=== PATIENT | female | born 1985 | race African-American/Black ===

== ENCOUNTER 2017-06-22 19:39 | Emergency (ER) | payer OTHER ==
[~2017-06-22] VITALS: Ht 170.2 cm; Wt 91.0 kg
[2017-06-22 21:48] LABS: CHLORIDE 110 mEq/L (98-107)
[2017-06-22 21:51] LABS: BASOPHILS % 0.7 % (0.0-2.0); EOSINOPHILS % 1.3 % (0.0-5.0); HEMATOCRIT. 39.6 % (36.0-48.0); HEMOGLOBIN. 13.1 g/dL (12.0-16.0); LYMPHOCYTES % 34.7 % (20.0-50.0); MEAN CORPUSCULAR HEMOGLOBIN 26.9 pg (28.0-32.0); MEAN CORPUSCULAR VOLUME 81.3 fL (81.0-99.0); MEAN PLATELET VOLUME 9.3 fl (7.4-10.4); MONOCYTES % 4.4 % (2.0-8.0); NEUTROPHILS % 58.9 % (40.0-76.0); PLATELET 283 x1000/uL (130-400); RED BLOOD CELL COUNT 4.87 mill/uL (4.2-5.4); RED CELL DISTRIBUTION WIDTH 18.4 % (11.6-14.6)
[2017-06-22 21:52] LABS: HCG SCREEN NEGATIVE
[2017-06-22 21:53] LABS: ETHANOL BLOOD < 10 mg/dL
[2017-06-22 23:54] LABS: CLARITY URINE CLEAR (CLEAR); COLOR URINE YELLOW (YELLOW); KETONES URINE NEGATIVE (NEGATIVE); LEUKOCYTE ESTERASE URINE TRACE (NEGATIVE); NITRITE URINE POSITIVE (NEGATIVE); OCCULT BLOOD URINE 1+ (NEGATIVE); PROTEIN URINE NEGATIVE (NEGATIVE); SPECIFIC GRAVITY URINE 1.005 (1.005-1.030); UROBILINOGEN URINE 0.2 E.U./dL (0.2-1.0)
[2017-06-23 00:06] LABS: *AMPHETAMINES SCREEN URINE NEGATIVE (NEGATIVE); *BARBITURATES SCREEN URINE NEGATIVE (NEGATIVE)
[2017-06-23 00:08] LABS: *BENZODIAZEPINES SCREEN URINE NEGATIVE (NEGATIVE); *COCAINE SCREEN URINE NEGATIVE (NEGATIVE); METHADONE URINE SCREEN NEGATIVE (NEGATIVE); OPIATES URINE SCREEN NEGATIVE (NEGATIVE); PHENCYCLIDINE URINE SCREEN NEGATIVE (NEGATIVE)
[2017-06-23 00:24] LABS: CANNABINOID URINE SCREEN PRESUMTIVE POSITIVE (NEGATIVE)
[2017-06-23] MEDS ORDERED: CEFTRIAXONE 1 G PREMIX 50 ML IV SCH (02:26)
[2017-06-23] MEDS ORDERED: OLANZAPINE 10MG TABLET ODT PO SCH (04:17)
[2017-06-23] MEDS ORDERED: LORAZEPAM 1MG TABLET PO ONE ×2 (08:45→16:00)
[2017-06-23 12:12] LABS: CHLORIDE 112 mEq/L (98-107)
[2017-06-23] MEDS ORDERED: SODIUM CHLORIDE 0.9% 1,000 ML IV ONE (13:55)
[2017-06-23] MEDS ORDERED: NICOTINE 21MG PATCH TD ONE (15:30)
[2017-06-23] MEDS: QUETIAPINE FUMARATE 100MG TABLET PO SCH (20:36)
[2017-06-24] MEDS: QUETIAPINE FUMARATE 100MG TABLET PO SCH (09:15)
[2017-06-24] MEDS ORDERED: ABIL5 PO (11:11)
[2017-06-24] MEDS ORDERED: TOPA25 PO (11:12)
[2017-06-24] MEDS ORDERED: CLON0.5T4 PO (11:12)
[2017-06-24] MEDS ORDERED: SERT25TA74 PO (11:12)
[2017-06-24] MEDS ORDERED: CLONAZEPAM 1MG TABLET PO ONE (13:15)
[2017-06-25 13:38] VITALS: BP 120/68
== END 2017-06-25 13:39 ==
LOC: ER 19:51
DX: T42.6X2A Poisoning by other antiepileptic and sedative-hypnotic drugs, intentional self-harm, initial encounter (principal); N39.0 Urinary tract infection, site not specified; F41.9 Anxiety disorder, unspecified; F25.9 Schizoaffective disorder, unspecified; F32.9 Major depressive disorder, single episode, unspecified; F17.200 Nicotine dependence, unspecified, uncomplicated; Q20.5 Discordant atrioventricular connection; F12.10 Cannabis abuse, uncomplicated; Y92.018 Other place in single-family (private) house as the place of occurrence of the external cause
CPT/HCPCS: 36415; 80053; 80305; 80307; 80329; 81003; 82962; 84703; 85025; 87086; 93005; 96361; 96365; 99285; G0482; J0696; J7030; Z7610

== ENCOUNTER 2017-07-02 12:15 | Emergency (ER) | payer OTHER ==
[~2017-07-02] VITALS: Ht 170.2 cm; Wt 91.0 kg
[~2017-07-02 12:15] MED LIST: ABIL5 PO; CLON0.5T4 PO; SERT25TA74 PO; TOPA25 PO
[2017-07-02] MEDS ORDERED: SODIUM CHLORIDE 0.9% 1,000 ML IV ONE ×2 (13:08→21:00)
[2017-07-02] MEDS ORDERED: ONDANSETRON HCL 4MG/2ML VIAL IV ONE (13:15)
[2017-07-02] MEDS ORDERED: ACTIVATED CHARCOAL 50 G/240 ML TUBE NG ONE (13:15)
[2017-07-02 13:36] LABS: BASOPHILS % 0.5 % (0.0-2.0); EOSINOPHILS % 0.2 % (0.0-5.0); HEMATOCRIT. 39.6 % (36.0-48.0); MEAN CORPUSCULAR HEMOGLOBIN 26.7 pg (28.0-32.0); MEAN CORPUSCULAR VOLUME 81.1 fL (81.0-99.0); MEAN PLATELET VOLUME 9.1 fl (7.4-10.4); MONOCYTES % 3.8 % (2.0-8.0); NEUTROPHILS % 80.5 % (40.0-76.0); PLATELET 327 x1000/uL (130-400); RED BLOOD CELL COUNT 4.88 mill/uL (4.2-5.4); RED CELL DISTRIBUTION WIDTH 18.3 % (11.6-14.6)
[2017-07-02 13:38] LABS: CHLORIDE 104 mEq/L (98-107)
[2017-07-02 13:43] LABS: HCG SCREEN NEGATIVE
[2017-07-02 15:38] LABS: INR 1.1; PROTHROMBIN TIME 11.4 sec (9.4-11.6)
[2017-07-02 15:40] LABS: ETHANOL BLOOD < 10 mg/dL
[2017-07-02] MEDS ORDERED: OLANZAPINE 10MG TABLET ODT PO ONE (21:00)
[2017-07-02 21:46] LABS: CLARITY URINE CLOUDY (CLEAR); COLOR URINE YELLOW (YELLOW); KETONES URINE NEGATIVE (NEGATIVE); LEUKOCYTE ESTERASE URINE TRACE (NEGATIVE); NITRITE URINE NEGATIVE (NEGATIVE); OCCULT BLOOD URINE NEGATIVE (NEGATIVE); PROTEIN URINE NEGATIVE (NEGATIVE); UROBILINOGEN URINE 0.2 E.U./dL (0.2-1.0)
[2017-07-02 22:02] LABS: *AMPHETAMINES SCREEN URINE NEGATIVE (NEGATIVE); *BARBITURATES SCREEN URINE NEGATIVE (NEGATIVE); *COCAINE SCREEN URINE NEGATIVE (NEGATIVE)
[2017-07-02 22:03] LABS: *BENZODIAZEPINES SCREEN URINE PRESUMTIVE POSITIVE (NEGATIVE); CANNABINOID URINE SCREEN PRESUMTIVE POSITIVE (NEGATIVE); METHADONE URINE SCREEN NEGATIVE (NEGATIVE); OPIATES URINE SCREEN NEGATIVE (NEGATIVE); PHENCYCLIDINE URINE SCREEN NEGATIVE (NEGATIVE)
[2017-07-03] MEDS ORDERED: NITROFURANTOIN 100MG M/M CAPSULE PO ONE (12:00)
[2017-07-03] MEDS ORDERED: QUETIAPINE FUMARATE 100MG TABLET PO STA (21:51)
[2017-07-04 13:30] VITALS: BP 117/77
== END 2017-07-04 18:45 | disposition left against medical advice (07) ==
LOC: ER 15:18
DX: T43.222A Poisoning by selective serotonin reuptake inhibitors, intentional self-harm, initial encounter (principal); T42.4X2A Poisoning by benzodiazepines, intentional self-harm, initial encounter; T43.592A Poisoning by other antipsychotics and neuroleptics, intentional self-harm, initial encounter; R11.2 Nausea with vomiting, unspecified; F41.9 Anxiety disorder, unspecified; F32.9 Major depressive disorder, single episode, unspecified; F12.10 Cannabis abuse, uncomplicated; F20.9 Schizophrenia, unspecified; Y92.018 Other place in single-family (private) house as the place of occurrence of the external cause
CPT/HCPCS: 36415; 71045; 80053; 80305; 80307; 80329; 81003; 83605; 83735; 84443; 84703; 85025; 85610; 93005; 96374; 99285; G0482; J2405; J7030